=== PATIENT | male | born 1965 ===

== ENCOUNTER 2024-01-11 05:03 | Outpatient (CLI) | payer MEDICAID, SELFPAY ==
--- NOTE | 2024-01-15 20:37 | PDOC.EEG ---
Neurology EEG EEG: [facility] Department of Neurology LONG-TERM AMBULATORY EEG REPORT Date of Recordin01/11/24 at 15:26:57 to 01/13/24 at 07:12:34 Interpreting Physician: Dr. Tessie Finley PCP/Referring Provider: Dr. Pilo Peace Reason for study: Mr. Mullins has a history of seizures that occurred nearly 40 years ago with no seizures since. Current Medications: Home Medications Medication Instructions Recorded Confirmed Type amlodipine 10 mg tablet 10 mg PO DAILY 12/12/23 12/18/23 History hydrochlorothiazide 25 mg tablet 25 mg PO DAILY 12/12/23 12/18/23 History lisinopril 20 mg tablet 20 mg PO DAILY 12/12/23 12/18/23 History lorazepam 0.5 mg tablet 0.5 mg PO TID PRN 12/12/23 12/18/23 History magnesium oxide 400 mg PO DAILY 12/12/23 12/18/23 History ondansetron 4 mg disintegrating 4 mg PO Q8H 12/12/23 12/18/23 History tablet divalproex 500 mg tablet,extended 1,500 mg PO HS 12/18/23 12/18/23 History release 24 hr galcanezumab-gnlm 120 mg/mL 240 mg (2 mL) subcut ONCE #2 mL 12/18/23 12/18/23 Rx subcutaneous pen injector (Emgality Pen) lamotrigine 25 mg tablet 50 mg PO BID 12/18/23 12/18/23 History prochlorperazine maleate 5 mg 5 mg PO TID PRN nausea and 12/18/23 12/18/23 Rx tablet vomiting or headache #60 tabs METHODS: An 18-channel digitized electroencephalogram was recorded in the ambulatory setting with video. The 10/20 international system of electrode placement was used and bipolar and referential electrode montages were recorded. In addition to EEG the patient was monitored for EKG and by video. Activation procedures of photic stimulation and hyperventilation were performed if applicable. The duration of the recording was ~40 hours. DESCRIPTION OF EEG: Waking background activity: During maximal wakefulness a 10-Hz posterior background rhythm was present which was well-modulated, symmetrical, reactive to eye opening, and of moderate voltage. Faster frequencies were present in the bilateral anterior head regions. There was a normal anterior-posterior voltage gradient. Drowsy and sleeping background activity: During drowsiness, there was attenuation of the posterior dominant background rhythm and vertex waves. Normal stage II and III sleep was present with symmetrical sleep spindles, K-complexes, and vertex waves with slowing of the background rhythm to delta/theta frequencies. REM sleep manifested by rapid lateral eye movements and faster background rhythms was recorded. Arousal was unremarkable. Interictal abnormalities: There were frequent bursts of moderate-amplitude, left temporal, sharply contoured, non-rhytmic theta activity. This often had a broad field including the entire left hemisphere and part of the right. These bursts were only seen during wakefulness. Ictal findings: No events captured/recorded. Activating Procedures: Photic stimulation was performed which produced no posterior driving response. Hyperventilation was performed with moderate effort and produced mild physiological slowing of the background. EKG: EKG revealed normal sinus rhythm. INTERPRETATION: This long-term EEG is abnormal due to frequent runs of sharply-contoured theta with a left temporal predominance, of unclear significance. PRIOR EEG: none CLINICAL CORRELATION: The finding above is of unclear significance, but could be indicative of an underlying epileptiform disorder. Clinical correlation is advised. Tessie Finley MD Date of service: 01/11/24
== END 2024-01-11 05:04 | disposition home or self-care (01) ==
LOC: RT 05:03
PROVIDERS: PCP Family Medicine; Visit Provider Psychiatry & Neurology Neurology
DX: R68.89 Other general symptoms and signs (principal)
CPT/HCPCS: 95714; 95722